=== PATIENT | male | born 1945 | race Caucasian/White ===

== ENCOUNTER 2021-11-09 09:14 | Outpatient (CLI) | payer MEDICARE, SELFPAY ==
--- NOTE | ~2021-11-09 | MR_ITS ---
EXAMINATION: MR pelvis wo/w con DATE: 11/09/2021 11:03 INDICATION: Prostate cancer TECHNIQUE: Magnetic resonance imaging (MRI) of the pelvis was performed without and with 15 mL Multih ance intravenous contrast. Fullfield sequences of the pelvis included axial and coronal T2-weighted S S FSE, axial, sagittal and coronal 2D FIESTA, axial 2D FIESTA FS, axial SSFSE-IR CLAYTON, axial dual-echo T1-weighted FSPGR, axial and coronal T1 weighted LAVA, 3D axial T2 Cube, axial diffusion-weighted SE with apparent diffusion coefficient (ADC) maps. Postcontrast sequences included a time course axial T1-weighted LAVA and sagittal and coronal T1-weighted LAVA. COMPARISON: None. FINDINGS: Prostatomegaly measuring 4.4 x 3.0 cm. T1 hyperintense likely hydrogel spacer positioned between the posterior margin of the prostate in the anterior wall of the rectum. The collection measures 4.3 cm c raniocaudally, 3.0 cm left to right and 8 mm in maximal thickness. There is a 13 x 11 x 8 mm T2 hyper intense subcapsular lesion at the posterior prostate immediately deep to the hydrogel spacer which ma y represent an additional small amount of hydrogel. There appears to be additional anterior extension of a minimal amount of hydrogel along the right inferior aspect of the prostate also with potential intraprostatic extension with an 8 x 6 mm T2 hyperintense nonenhancing region in the right anteroinfe rior aspect of the prostate. Bladder is normal. Visualized portion of the bowels are unremarkable. No free fluid in the pelvis. No pathologically enlarged pelvic or inguinal lymphadenopathy. Mild lower lumbar levocurvature with severe left-sided disc height loss and degenerative endplate changes at L4- L5. No abnormally enhancing bone lesions or other pathologic marrow replacing process. IMPRESSION: 1. Placement of a hydrocele spacer between the enlarged prostate in the anterior wall of the rectum l ikely for planned subsequent radiation treatment for reported prostate cancer. Couple small T1 hyperi ntense nonenhancing lesions within the prostate as detailed above which may represent intraprostatic extension of a small amount of the hydrogel. 2. No evident metastatic disease in the pelvis. Reviewed, dictated and finalized at location A. IMPRESSION: 1. Placement of a hydrocele spacer between the enlarged prostate in the anterio r wall of the rectum likely for planned subsequent radiation treatment for repo rted prostate cancer. Couple small T1 hyperintense nonenhancing lesions within the prostate as detailed above which may represent intraprostatic extension of a small amount of the hydrogel. 2. No evident metastatic disease in the pelvis.
[2021-11-09 10:21] LABS: Estimated Glomerular Filt Rate > 60
== END 2021-11-09 09:15 | disposition home or self-care (01) ==
LOC: ANHIMG 09:17
PROVIDERS: PCP Internal Medicine; Visit Provider Radiology Radiation Oncology
DX: C61 Malignant neoplasm of prostate (principal); C79.89 Secondary malignant neoplasm of other specified sites
CPT/HCPCS: 72197; A9577